=== PATIENT | male | born 1990 | race Caucasian/White ===

== ENCOUNTER 2018-04-11 09:51 | Emergency (ER) | payer SELFPAY ==
[2018-04-11] MEDS ORDERED: ONDANSETRON 4 MG/2 ML VIAL ONE (10:49)
[2018-04-11] MEDS ORDERED: NA CHLORIDE 0.9% 1,000 ML ONE (10:49)
[2018-04-11] MEDS ORDERED: KETOROLAC 30 MG/ML INJ ONE (10:49)
[2018-04-11 11:18] LABS: Absolute Lymphocytes (CBC) 2.3 K/uL (0.7-4.9); Absolute Monocytes 0.5 K/uL (0.1-1.3); Absolute Neutrophil 3.5 K/uL (1.8-8.0); Basophils % 0.6 % (0-1.3); Eosinophils % 1.9 % (0-4.4); Hematocrit 43.3 % (39.6-49.0); Lymphocytes % 34.9 % (15.3-44.8); MCH 32.2 pg (27.0-35.0); MCV 95.8 fL (80-100); MPV 8.9 fL (7.6-11.3); Monocytes % 7.9 % (3.3-12.3); RBC Red Blood Cell Count 4.52 M/uL (4.33-5.43)
[2018-04-11 11:32] LABS: Bicarbonate 28 mEq/L (21-31); Glucose Level 92 mg/dL (65-120); Lipase 26 U/L (22-51); Potassium 3.7 mEq/L (3.6-5.0); Sodium Level 137 mEq/L (135-145)
[2018-04-11 11:38] LABS: ALT/SGPT 34 IU/L (10-60); AST/SGOT 26 IU/L (10-42); Albumin 4.4 g/dL (3.2-5.5); Alkaline Phosphatase 55 IU/L (42-121); Amylase Level 49 U/L (28-100); BUN Blood Urea Nitrogen 10 mg/dL (6-20); Bilirubin Direct 0.2 mg/dL (0-0.2); Bilirubin Total 1.6 mg/dL (0.3-1.2); Protein, Total 7.3 g/dL (6.0-8.3)
[2018-04-11] MEDS ORDERED: MORPHINE 4 MG/ML SYR ONE (11:38)
[2018-04-11 12:02] LABS: Urine Bacteria NONE SEEN /HPF (NONE SEEN); Urine Culture Reflex Order NOT NEEDED; Urine RBC <5 /HPF (NONE SEEN)
--- NOTE | 2018-04-11 12:59 | RAD REPORT ---
EXAM DESCRIPTION: CTAbdomen Pelvis W Contrast - 04/11/2018 12:19 pm CLINICAL HISTORY: Abdominal pain. COMPARISON: 10/25/2016 TECHNIQUE: Biphasic CT imaging of the abdomen and pelvis was performed with 100 ml non-ionic IV cont rast. All CT scans are performed using dose optimization technique as appropriate and may include automated exposure control or mA/KV adjustment according to patient size. FINDINGS: The lung bases are clear. The liver, spleen, pancreas, adrenal glands and kidneys are within normal limits. No bowel obstruction, free air, free fluid or abscess. The appendix is normal. No evidence of signi ficant lymphadenopathy. No suspicious bony findings. IMPRESSION: No acute intra-abdominal or pelvic finding.
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
== END 2018-04-11 13:37 | disposition home or self-care (01) ==
LOC: ER 09:51
DX: R30.0 Dysuria (principal); Z72.0 Tobacco use
CPT/HCPCS: 36415; 74177; 80048; 80076; 81015; 82150; 83690; 85025; 96361; 96374; 96375; 99284; J2405; J7030; Q9967

== ENCOUNTER 2018-05-23 17:20 | Emergency (ER) | payer SELFPAY ==
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
[2018-05-23] MEDS ORDERED: KETOROLAC 30 MG/ML INJ ONE (17:48)
== END 2018-05-23 17:54 | disposition home or self-care (01) ==
LOC: ER 17:20
DX: K08.9 Disorder of teeth and supporting structures, unspecified (principal)
CPT/HCPCS: 96372; 99283